=== PATIENT | female | born 1970 | race Caucasian/White ===

== ENCOUNTER → 2018-04-16 | Day surgery (SDC) | payer OTHER ==
[2018-04-15 17:19] LABS: BASOPHILS # (AUTO) 0.1 (0.0-0.1); EOSINOPHILS # (AUTO) 0.3 (0.0-0.4); EOSINOPHILS % 4.3 % (0.0-6.0); HEMATOCRIT 38.9 % (34.2-44.1); HEMOGLOBIN 13.1 g/dL (12.0-16.0); LYMPHOCYTES # (AUTO) 0.9 (1.0-3.2); LYMPHOCYTES % 15.6 % (18.0-39.1); MEAN CORPUSCULAR HEMOGLOBIN 28.7 pg (28-32); MEAN CORPUSCULAR HGB CONC 33.7 g/dL (31-35); MEAN CORPUSCULAR VOLUME 85.1 fL (81-99); MONOCYTES # (AUTO) 0.6 (0.2-0.8); MONOCYTES % 9.5 % (4.4-11.3); NEUTROPHILS % 68.9 % (38.7-80.0); PLATELET COUNT 230 x10e3/uL (140-360); RED BLOOD COUNT 4.57 x10e6/uL (3.6-5.1); RED CELL DISTRIBUTION WIDTH 13.6 % (11.7-14.4)
[2018-04-15 17:36] LABS: ALANINE AMINOTRANSFERASE 31 IU/L (0-55); ALBUMIN 4.1 g/dL (3.5-5.0); ALBUMIN/GLOBULIN RATIO 1.2 (0.8-2.0); ALKALINE PHOSPHATASE 64 IU/L (40-150); ANION GAP 14.9 mmol/L (8-16); BLOOD UREA NITROGEN 17 mg/dL (7-26); BUN/CREATININE RATIO 18 (6-25); CALCIUM 9.7 mg/dL (8.4-10.2); CARBON DIOXIDE 24 mmol/L (22-29); CHLORIDE 105 mmol/L (98-107); CREATININE, SERUM 0.93 mg/dL (0.57-1.11); EST GLOMERULAR FILTRATION RATE > 60 ML/MIN (60-); GLUCOSE 92 mg/dL (74-118); POTASSIUM 3.9 mmol/L (3.5-5.1); SODIUM 140 mmol/L (136-145)
[2018-04-15 17:44] LABS: INR 0.99; PROTHROMBIN TIME 12.3 seconds (11.9-14.5)
[2018-04-15 17:45] LABS: PARTIAL THROMBOPLASTIN TIME 28.3 seconds (23.8-35.5)
[~2018-04-16] MED LIST: ACETAMINOPHEN 1000 MG/100 ML 100 ML IV ONE; ARIMIDEX1 MG; ATIVAN1 MG; BACITRACIN 50,000 UNIT VIAL ONE; CALCIUM; CLINDAMYCIN 600MG/D5W 50ML 50 ML IV ONE; CYCLOBENZAPRINE5 MG; DEXAMETHASONE SOD PHOS INJ 4 MG/ML VIAL ONE; FENTANYL CITRATE/PF 100MCG/2 ML INJ ONE; KRILL OIL500 MG; LEXAPRO10 MG PO; LIDOCAINE HCL 2% LOCAL INJ 5 ML SDV VIAL INJ ONE; MAGNESIUM; MIDAZOLAM HCL 5MG/ML 2ML VIAL ONE; MULTIVITAMINS1 EAC7; ONDANSETRON HCL INJ 2 MG/ML VIAL ONE; PROBIOTIC & AC1 EACH; PROPOFOL IV EMULSION 10 MG/ML 20 ML VIAL ONE; SEVOFLURANE INHAL SOLN 250 ML PEN BTL ONE; SODIUM CHLORIDE 0.9% 500ML 500 ML ONE; TRAZODONE HCL50 MG PO; VITAMIN D3; ZOLADEX3.6 MG
--- NOTE | 2018-04-19 15:40 | Operative Report ---
DATE OF PROCEDURE: April 16, 2018 PREOPERATIVE DIAGNOSES 1. History of breast cancer. 2. Acquired absence of bilateral breasts. 3. Ruptured left breast tissue welt rougher. POSTOPERATIVE DIAGNOSES 1. History of breast cancer. 2. Acquired absence of bilateral breasts. 3. Ruptured left breast tissue welt rougher. PROCEDURES PERFORMED 1. Removal of ruptured left breast tissue welt rougher. 2. Revision of left breast reconstruction. 3. Left breast reconstruction with tissue welt rougher, [place] CPX 4 medium height, 550 mL filled to 500 mL. SN number [id number]. AlloDerm regenerative tissue Matrix contour medium thick, lot number [id number]. ANESTHESIA: General endotracheal. INDICATIONS FOR SURGERY: This is a 47-year-old female who last year was diagnosed with left breast cancer and underwent bilateral mastectomies and immediate breast reconstruction with tissue expanders and AlloDerm. The patient subsequently had left breast radiation and recently presented with ruptured left breast tissue welt rougher. The patient desires removal of ruptured left breast tissue welt rougher, revision of left breast reconstruction, and left breast reconstruction with new tissue welt rougher and AlloDerm. The risks, alternatives, and possible complications of the above procedure were explained to the patient. These include, but are not limited to bleeding, infection, scarring, skin flap necrosis, capsule contracture, breast asymmetry, exposure or failure of tissue welt rougher, wound dehiscence, unsatisfactory aesthetic results, seroma formation, and possible need for further surgery. The patient had an opportunity to ask questions and have her questions answered, and agreed to proceed with the proposed procedure. PROCEDURE IN DETAIL: The patient was marked in the preoperative holding area. She was then taken to the operating room and placed supine on the operating table. After adequate general anesthesia, the patient's bilateral breasts were prepped and draped in the usual surgical fashion. Attention was then turned to the patient's left breast. An incision was made along the previous mastectomy incision with a #15 blade. Tissue was dissected down to the breast capsule. The tissue welt rougher was removed, and it was deflated from the previous rupture. The breast pocket was then irrigated with normal saline with antibiotic solution. It was noted that part of the AlloDerm from the previous breast reconstruction was not attached to the overlying skin flap. The AlloDerm which was not attached was then debrided and as part of the revision of left breast reconstruction. Extensive medial and superior capsulotomy was performed because of the capsule contracture, which had formed after the radiation therapy. The breast pocket was irrigated with normal saline with antibiotic solution and checked for hemostasis. The edge of the pectoralis major muscle was identified and resected. Then the AlloDerm which was Quantum medium thick ready to use was sutured along the inframammary and lateral chest wall with interrupted 2-0 PDS suture. A #10 flat CORNELIUS was placed exiting laterally through the previous incision for the drain, and sutured in place with 2-0 nylon suture. A new tissue welt rougher was placed, which was [place] CPX 4 medium height, 550 mL. It was filled to 100 mL and placed in the subpectoral pocket. The pectoralis major muscle was then sutured to the AlloDerm with interrupted 2-0 PDS sutures. The skin flap for the mastectomy incisions was closed with 2 layers of interrupted 3-0 Vicryl sutures and a running subcuticular 3-0 PDS suture. An additional 400 mL of normal injectable saline was placed in the tissue welt rougher to a final fill of 500 mL. At the end of the case, both skin flaps appeared viable. The 2 breasts appeared to be symmetric. The incision was covered with Xeroform, ABD pad, and the patient was wrapped with a large 6-inch Joel wrap. She tolerated the procedure well. There were no immediate complications. The needle and instrument count was correct at the end of the case. She was transferred extubated to the recovery room. Job#: [id number] [email or web address]
== END | disposition home or self-care (01) ==
LOC: OR 10:47
PROVIDERS: ATTEND Plastic Surgery
DX: T85.898A Other specified complication of other internal prosthetic devices, implants and grafts, initial encounter (principal); K21.9 Gastro-esophageal reflux disease without esophagitis; K44.9 Diaphragmatic hernia without obstruction or gangrene; F41.9 Anxiety disorder, unspecified; F32.9 Major depressive disorder, single episode, unspecified; Y83.4 Other reconstructive surgery as the cause of abnormal reaction of the patient, or of later complication, without mention of misadventure at the time of the procedure; Z85.3 Personal history of malignant neoplasm of breast; Z90.13 Acquired absence of bilateral breasts and nipples; Z92.3 Personal history of irradiation; Z01.812 Encounter for preprocedural laboratory examination
CPT/HCPCS: 15777; 19340; 36415; 80053; 84702; 85025; 85610; 85730; 99070; J1100; J2001; J2250; J2405; J7040; Q4116